=== PATIENT | male | born 1995 | race Caucasian/White ===

== ENCOUNTER → 2016-04-18 10:21 | Day surgery (SDC) | payer OTHER ==
[~2016-04-18 10:21] MED LIST: Buffered Lidocaine 1% SYR 3ML* 3 ML/SYR SYRINGE INTRADERM ONE; Dexamethasone IV* 4 MG/ML 1 ML (4 MG) IV SLOW PU ONE; Dexamethasone IV* 4 MG/ML 1 ML (4 MG) ONE; Famotidine IV* 10 MG/ML 2 ML (20 mg) IV ONE; Famotidine IV* 10 MG/ML 2 ML (20 mg) ONE; Midazolam* 1 MG/ML 2 ML VIAL (2 MG) ONE; Propofol* 10 MG/ML 20 ML BTL IV PUSH ONE; fentaNYL* 50 MCG/ML 2 ML VIAL (100 MCG VIAL) ONE
[2016-04-18 13:41] VITALS: BP 104/66
== END | disposition home or self-care (01) ==
LOC: OR 10:21
PROVIDERS: ATTEND Pediatrics
DX: Q44.2 Atresia of bile ducts (principal); Z88.1 Allergy status to other antibiotic agents; R12 Heartburn
CPT/HCPCS: J1100; J2250; J2704; J3010